=== PATIENT | male | born 1995 | race Caucasian/White ===

== ENCOUNTER 2019-08-17 08:01 | Day surgery (SDC) | payer BC ==
[~2019-08-17] VITALS: Ht 175.3 cm; Wt 68.0 kg
[2019-08-17] MEDS ORDERED: LACTATED RINGERS 1,000 ML IV SCH (08:46)
[2019-08-17 08:50] VITALS: BP 126/76
[2019-08-17] MEDS ORDERED: CHLORHEXIDINE 15 ML UDC MM ONE (09:00)
[2019-08-17] MEDS ORDERED: NONE PER PT (09:01)
[2019-08-17] MEDS ORDERED: ROCURONIUM 10MG/ML,5ML ONE (09:07)
[2019-08-17] MEDS ORDERED: PROPOFOL 10 MG/ML, 20ML ONE (09:12)
[2019-08-17] MEDS ORDERED: FENTANYL PF 100 MCG/2ML ONE (09:13)
[2019-08-17] MEDS ORDERED: MIDAZOLAM 1 MG/ML, 2ML ONE (09:13)
[2019-08-17] MEDS ORDERED: CHLORHEXIDINE 15 ML UDC ONE (09:15)
[2019-08-17] MEDS ORDERED: morphine SULFATE 10 MG/ML, 1ML IVPush PRN (09:30)
[2019-08-17] MEDS ORDERED: APREPITANT 40 MG CAPSULE PO ONE (09:30)
[2019-08-17] MEDS ORDERED: HYDROmorphone 1 MG/ML, 1ML INJ IVPush PRN (09:30)
[2019-08-17] MEDS ORDERED: HYDROcodone/APAP 7.5-325MG/15ML UDC PO PRN (09:30)
[2019-08-17] MEDS ORDERED: ACETAMINOPHEN 325 MG TABLET PO PRN (09:30)
[2019-08-17] MEDS ORDERED: FENTANYL PF 100 MCG/2ML IV PRN (09:30)
[2019-08-17] MEDS ORDERED: OXYcodone 5 MG/5 ML ORAL.SOL UDC PO PRN (09:30)
[2019-08-17] MEDS ORDERED: APREPITANT 40 MG CAPSULE ONE (09:34)
[2019-08-17] MEDS ORDERED: BUPIVACAINE/PF 0.25% ONE (09:44)
[2019-08-17] MEDS ORDERED: LIDOCAINE-MPF 2% ,5ML ONE (10:07)
[2019-08-17] MEDS ORDERED: CEFAZOLIN 1,000 MG ONE (10:17)
[2019-08-17] MEDS ORDERED: SUGAMMADEX 200 MG/2 ML IVPush ONE (10:29)
[2019-08-17] MEDS ORDERED: BUPIVACAINE/PF 0.25% INFIL ONE (10:32)
[2019-08-17] MEDS ORDERED: NEOSPORIN OINT, 15GM ONE (10:40)
[2019-08-17] MEDS ORDERED: NEOSPORIN OINT, 15GM TP ONE (10:43)
[2019-08-17] MEDS ORDERED: OXYcodone/APAP 5/325MG TABLET PO PRN (11:30)
[2019-08-17] MEDS ORDERED: ONDANSETRON 2MG/ML, 2ML IV PRN (11:30)
== END 2019-08-17 12:40 | disposition home or self-care (01) ==
LOC: OUT 08:01
PROVIDERS: ATTEND Urology
DX: D18.09 Hemangioma of other sites (principal); Z11.59 Encounter for screening for other viral diseases; N48.6 Induration penis plastica
CPT/HCPCS: 36415; 54057; 87635; J0690; J2250; J2704; J3010; J3490; J7120; J8501